=== PATIENT | male | born 1980 | race Caucasian/White ===

== ENCOUNTER 2022-03-14 17:46 | Emergency (ER) | payer MEDICAID, SELFPAY ==
[2022-03-14 17:46] VITALS: BP 116/81; PULSE 106; RESP 12; TEMP 36.6; O2SAT 98; BMI 19.9
--- NOTE | 2022-03-14 17:53 | NURSING ---
NO OLD EKGS
--- NOTE | 2022-03-14 17:55 | EKG12_ITS ---
Test Reason : CP Blood Pressure : / mmHG Vent. Rate : 099 BPM Atrial Rate : 099 BPM P-R Int : 148 ms QRS Dur : 104 ms QT Int : 352 ms P-R-T Axes : 076 082 043 degrees QTc Int : 451 ms Normal sinus rhythm Normal ECG Confirmed by VY ROJO, JOSE ([id number]), school photograph editor RINKU DIAZ ([id number]) on 03/16/2022 8:16:27 AM Referred By: Confirmed By:JOSE MCCLELLAN MD
[2022-03-14 17:56] LABS: Bedside Glucose > 500 mg/dL (74-106)
--- NOTE | 2022-03-14 17:56 | EDS_ITS ---
HPI History of Present Illness Chief Complaint: Chest Pain Detail of Chief Complaint: Chest pain that started while in the back of a police cruiser. Informant: patient Narrative Narrative: Patient presents to the emergency department in police escort with complaint of chest pain. Patient apparently had a warrant out for his arrest and police arrested him. 1 in the back of the cruiser he developed chest pain. He describes a dull pain in the left chest towards the center. Denies any radiation of the pain. He denies nausea or vomiting. He denies shortness of breath. He has no heart history. Patient is a diabetic. Patient states he last checked his blood sugar this morning and it was in the 300s. Patient states he has been taking his insulin. He is not had any vomiting. EMS checked his blood sugar and the reading was just high. Patient also with history of neuropathy. Prior similar symptoms: Yes [facility] Medical History (Updated 03/14/22 @ 19:[address] Easton Treadwell, DO) Diabetes Neuropathy Home Medications gabapentin 400 mg capsule 400 cap PO TID 03/14/22 [History Last Taken Unknown] insulin glargine 100 unit/mL (3 mL) subcutaneous pen (Lantus Solostar U-100 Insulin) 20 ea subcut QHS 03/14/22 [History Last Taken Unknown] insulin lispro 100 unit/mL subcutaneous pen See Protocol subcut BIDAC 03/14/22 [History Last Taken Unknown] pregabalin 50 mg capsule 50 cap PO TID 03/14/22 [History Last Taken Unknown] Allergy/AdvReac Type Severity Reaction Status Date / Time No Known Allergies Allergy Verified 03/14/22 17:50 Social History Smoking Status: Current every day smoker tobacco type: cigarettes ROS ROS ED Review of Systems ROS Unobtainable: other Constitutional Constitutional ED: Reports lethargy; Denies chills, fever(s), sweats or weight loss Eyes Eyes: Denies blurry vision, change in vision or diplopia ENT ENT ED: Denies rhinorrhea or sore throat Cardiovascular Cardiovascular: Reports chest pain and racing heartbeat; Denies orthopnea Respiratory/Chest Respiratory/Chest: Reports dyspnea and dyspnea on exertion; Denies cough, orthopnea or sputum Gastrointestinal Gastrointestinal: Denies abdominal pain, diarrhea, nausea or vomiting Genitourinary Genitourinary ED: Denies dysuria, hematuria or urinary frequency Musculoskeletal Musculoskeletal: Denies arthralgias, back pain, myalgias or neck pain Integumentary Denies abscess, Abrasions or rash Neurologic Neurologic: Denies headache(s) or weakness Psychiatric Psychiatric: Denies anxiety, depression or suicidal thoughts Endocrine Endocrinology: Denies polydipsia, polyphagia or polyuria Hematologic/Lymphatic Hematologic/Lymphatic: Denies easy bleeding, easy bruising or lymphadenopathy Allergic/Immunologic Allergic/Immunologic ED: Denies mouth swelling, tongue swelling or urticaria EXAM Physical Exam Const Vital Signs: 03/14/22 17:46 03/14/22 18:17 Temperature 98 F Temperature Source Temporal Pulse Rate 106 H 98 Respiratory Rate 12 Blood Pressure 116/81 H 130/88 H Blood Pressure Mean 92 Pulse Ox 98 Oxygen Delivery Method Room Air Positive well nourished and well developed General Appearance ED: well developed and NAD HEENT Reports TM's clear and moist mucous membranes normocephalic and atraumatic; Negative for trauma or tenderness Tympanic Membrane ED: Yes TM's clear Eyes PERRL and EOMs intact bilaterally General Eye ED: Negative for pale conjunctiva or scleral icterus Neck no lymphadenopathy, supple and no JVD General: Negative for tenderness Chest Wall inspection of chest normal and palpation of chest normal Chest: Negative for tenderness Resp normal respiratory effort and clear to auscultation bilaterally Effort and Inspection: Negative for respiratory distress or pain with movement Auscultation: Negative for rhonchi, wheezes or diminished lung sounds Cardio regular rate, regular rhythm, S1 normal heart sound, S2 normal heart sound and no murmurs Peripheral Pulses: pulses 2+ throughout GI normal to inspection, nondistended, normoactive bowel sounds, soft to palpation, non-tender, non-distended and no masses Back/Spine no CVA tenderness and no thoracic nor lumbar tenderness Extremity normal to inspection Extremity Narrative: +1 edema both lower extremities that symmetric General Extremety ED: Yes edema General Extremity: edema Neuro oriented x3, CN's II-XII intact bilaterally, no sensory deficits noted and gait normal Sensorium / Orientation: awake, alert, oriented to person, oriented to place and oriented to time Motor Exam: strength 5/5 throughout and strength abnormal Psych mental status grossly normal Skin no rashes or lesions noted and no wounds MDM MDM MDM Narrative Medical decision making narrative: IV line established on arrival. Patient received sublingual nitro which really improved his pain and currently mostly resolved. Patient was noted to have an elevated blood sugar as of 688 for which I did give him 15 units of regular insulin subcu. Recommended doing a delta troponin and attempting to lower his blood sugar while in the department. Patient initially agreed to this however he then soon eloped from the emergency department before we could recheck his blood sugar and he refused to stay for delta troponin. Nursing staff stated he did not want to stay and talk to me about the treatment plan and eloped from the emergency department. 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 Lab Data Attestation: I reviewed the patient's lab results. Labs: Laboratory Results - last 24 hr 03/14/22 03/14/22 03/14/22 17:50 17:50 17:50 WBC 7.2 RBC 5.06 Hgb 14.6 Hct 43.2 MCV 85.4 MCH 28.9 MCHC 33.8 RDW Std Deviation 39.0 RDW Coeff of Ingrid 12.8 Plt Count 424 MPV 10.1 Immature Gran % (Auto) 0.300 Neut % (Auto) 56.8 Lymph % (Auto) 30.9 [place] % (Auto) 7.8 Eos % (Auto) 3.5 Baso % (Auto) 0.7 Absolute Neuts (auto) 4.1 Absolute Lymphs (auto) 2.23 Nucleated RBC % 0 D-Dimer Quant (PE/DVT) Sodium 133 L Potassium 4.5 Chloride 95 L Carbon Dioxide 30.0 Anion Gap 8 BUN 10 Creatinine 0.92 Estim Creat Clear Calc 86.98 Est GFR (MDRD) Af Amer 114 Est GFR (MDRD) Non-Af 95 BUN/Creatinine Ratio 10.8 Glucose 688 H* Calcium 8.8 Troponin I High Sens < 3 L Acetone Level NEGATIVE POC Glucose 03/14/22 03/14/22 17:50 17:51 WBC RBC Hgb Hct MCV MCH MCHC RDW Std Deviation RDW Coeff of Ingrid Plt Count MPV Immature Gran % (Auto) Neut % (Auto) Lymph % (Auto) Free[place] % (Auto) Eos % (Auto) Baso % (Auto) Absolute Neuts (auto) Absolute Lymphs (auto) Nucleated RBC % D-Dimer Quant (PE/DVT) 0.41 Sodium Potassium Chloride Carbon Dioxide Anion Gap BUN Creatinine Estim Creat Clear Calc Est GFR (MDRD) Af Amer Est GFR (MDRD) Non-Af BUN/Creatinine Ratio Glucose Calcium Troponin I High Sens Acetone Level POC Glucose > 500 H* Radiography Diagnostic Testing: Clinical Impression(s) from Imaging Studies Chest X-Ray 03/14/22 18:00 IMPRESSION: There are no acute findings. Electronically Signed: Fuentes Humphrey MD at 18:39 EDT Reading Location ID and State: [facility] / [place] , Service support , 1 view chest x-ray obtained interpreted by myself as no acute disease process. Radiology in agreement. EKG Initial EKG: Comments: Normal sinus rhythm with a rate of 99 bpm with no acute ST segment changes noted. Discharge Plan Triage Chief Complaint: Chest Pain ED Provider: Easton Treadwell Dx/Rx/DC Orders Clinical Impression: Chest pain, Acute hyperglycemia Prescriptions: No Action gabapentin 400 mg capsule 400 cap PO TID Label Comments: take 1 capsule by mouth three times a day insulin lispro [Humalog Pen] 100 unit/mL Insulin Pen See Protocol SUBCUT BIDAC Protocol: 3. Sliding Scale Insulin Med Dosing Condition: 150-189 mg/dl = 1 unit Condition: 190-229 mg/dl = 2 units Condition: 230-269 mg/dl = 3 units Condition: 270-309 mg/dl = 4 units Condition: 310-349 mg/dl = 5 units Condition: 350-399 mg/dl = 6 units Condition: 400-449 mg/dl = 7 units Condition: Greater than 449 call physician Protocol Text: - Use for Total Daily Dose of Insulin 37-55 units - Obsese, infected, or steroid patients MEDIUM DOSING ALGORITHIM pregabalin 50 mg capsule 50 cap PO TID Label Comments: TAKE ONE CAPSULE BY MOUTH THREE TIMES A DAY insulin glargine [Lantus Solostar U-100 Insulin] 100 unit/mL (3 mL) insulin pen 20 ea SUBCUT QHS Label Comments: INJECT 20 UNITS SUBCUTANEOUSLY AT BEDTIME Primary Care Provider: Shaina Moreno NP Referrals: Shaina Moreno NP, C [employer]OPER[employer] [Primary Care Provider] - Disposition Disposition: Elopement Discharge Date/Time: 03/14/22 19:34
--- NOTE | 2022-03-14 18:00 | RAD_ITS ---
STUDY: X-RAY CHEST REASON FOR EXAM: Male, 41 years old. CHEST PAIN chest pain TECHNIQUE: XR Chest 1 View COMPARISON: None FINDINGS: There is no demonstrated pleural abnormality. Normal size heart. Normal mediastinum and yoshi. Normal visualized pulmonary arteries. Normal visualized aortic arch and descending thoracic aorta. Normal visualized thoracic spine. Normal visualized ribs, clavicles, and shoulders. There is no demonstrated abnormality of the visualized soft tissue structures of the upper abdomen. RAD/Chest 1 View (Portable) IMPRESSION: There are no acute findings. Electronically Signed: Fuentes Humphrey MD at 18:39 EDT ,
--- NOTE | 2022-03-14 18:00 | NURSING ---
NO OLD EKGS
[2022-03-14 18:13] LABS: Absolute Lymphocyte Count 2.23 X10^3/uL (0.83-4.51); Absolute Neutrophil Count 4.1 X10^3/uL (2.0-7.7); Basophil# 0.05 X10^3/uL; Basophil% 0.7 % (0-1); Eosinophil# 0.25 X10^3/uL; Eosinophils% 3.5 % (0-5); Hematocrit 43.2 % (40-54); Hemoglobin 14.6 g/dL (13.0-16.5); Lymphocyte # 2.23 X10^3/ul (0.83-4.51); Lymphocyte % 30.9 % (19-41); Mean Corp Hgb Conc 33.8 g/dL (32-36); Mean Corpuscular Hgb 28.9 pg (27.0-32.0); Mean Corpuscular Volume 85.4 fL (80-94); Mean Platelet Vol. 10.1 fl (6.2-12.0); Monocyte# 0.56 X10^3/uL; Monocyte% 7.8 % (0-10); NRBC Flagged by Analyzer 0 % (0-5); Neutrophil % 56.8 % (47-70); Platelet Count 424 K/mm3 (150-450); RBC Distribution Width CV 12.8 % (11.6-14.6); Red Blood Count 5.06 M/mm3 (4.6-6.2); White Blood Count 7.2 K/mm3 (4.4-11.0)
[2022-03-14] MEDS: Aspirin 81 MG TAB.CHEW 324 MG PO (18:15)
[2022-03-14] MEDS: 0.9% Normal Saline 1,000 ML 150 ML IV (18:15)
[2022-03-14 18:17] VITALS: BP 130/88; PULSE 98
[2022-03-14] MEDS: Nitroglycerin SL (ED/IMG/CATH) 0.4 MG TABLET SL (18:17)
[2022-03-14] MEDS: Insulin Lispro 100 UNIT/ML INSULN.PEN 15 UNIT SC (18:17)
[2022-03-14 18:26] LABS: D-Dimer Quantitative (DVT/PE) 0.41 FEU/ug/m (0.27-0.49)
[2022-03-14 18:40] LABS: Anion Gap 8 (5-15); BUN 10 mg/dL (7-18); BUN/Creat Ratio 10.8 RATIO (10-20); Calcium,Total 8.8 mg/dL (8.5-10.1); Chloride 95 mmol/L (98-107); Creatinine, Serum 0.92 mg/dL (0.70-1.30); EST Glomerular Filtration Rate 95 mL/min (>60); Est Glom Filt Rate - Afr Amer 114 mL/min (>60); Estimated Creatinine Clearance 86.98 ml/min; Glucose 688 mg/dL (74-106); Potassium 4.5 mmol/L (3.5-5.1); Sodium Level 133 mmol/L (136-145); Troponin-I HS (w/2H Reflex) < 3 pg/mL (3.0-78.0)
--- NOTE | 2022-03-14 19:31 | ED.RN ---
PT CALLED THIS RN TO ROOM, HAD TAKEN OFF SALES SERVICE ASSISTANT. PT STATES GET THIS THING OUT OF MY ARM. PT STATES HE IS LEAVING, WILL NOT WAIT AND SPEAK TO DOCTOR, WILL NOT WAIT ON REPEAT TROPONIN. THIS RN ATTEMPTED TO EDUCATE PT ON RISKS OF ELOPING WITH CHEST PAIN. PT STATES I DON'T CARE ABOUT THAT ANYMORE. IV REMOVED, PT AMBULATED OUT OF DEPARTMENT.
[2022-03-14 20:02] LABS: Reflex Troponin-HS? (from REC) Y
== END 2022-03-14 19:34 | disposition left against medical advice (07) ==
PROVIDERS: Emergency Provider Emergency Medicine; PCP Nurse Practitioner Family; Visit Provider Emergency Medicine
DX: R07.9 Chest pain, unspecified (principal); E11.65 Type 2 diabetes mellitus with hyperglycemia; E11.40 Type 2 diabetes mellitus with diabetic neuropathy, unspecified; Z79.4 Long term (current) use of insulin; F17.210 Nicotine dependence, cigarettes, uncomplicated; Z79.899 Other long term (current) drug therapy
CPT/HCPCS: 71045; 80048; 82009; 82962; 84484; 85025; 85379; 93005; 99285; J7030; A4216